=== PATIENT | female | born 1945 | race Caucasian/White ===

== ENCOUNTER 2017-01-18 04:46 | Emergency (ER) | payer MEDICARE, OTHER ==
[2017-01-18] MEDS ORDERED: LOSARTAN POTASS25 MG PO (07:54)
[2017-01-18] MEDS ORDERED: RESTASIS EYE DR30 EA EACH EYE (07:55)
[2017-01-18 13:02] VITALS: BMI 20.8
[2017-01-18] MEDS ORDERED: COZAAR25 MG PO (19:39)
[2017-01-18] MEDS ORDERED: OMEPRAZOLE40 MG PO (19:39)
== END 2017-01-18 06:55 | disposition other institution (70) ==
LOC: D.ER 04:46
DX: R55 Syncope and collapse (principal); R07.9 Chest pain, unspecified; I10 Essential (primary) hypertension; Z95.0 Presence of cardiac pacemaker

== ENCOUNTER 2017-01-18 04:46 | Inpatient (IN) | payer MEDICARE, OTHER ==
[2017-01-18 05:23] LABS: BASOPHILS 0.5 % (0-2); EOSINOPHILS 4.5 % (0-7); HEMATOCRIT 36.7 % (36.0-48.0); HEMOGLOBIN 12.3 g/dL (12-16); IMMATURE GRANULOCYTES 0.2 % (0-5); MCH 30.1 pg (26.0-34.0); MCHC 33.5 g/dL (31.0-37.0); MEAN PLATELET VOLUME 10.9 fL (7.4-10.4); MONOCYTES 6.9 % (2-11); NEUTROPHILS 55.9 % (40-80); PLATELET COUNT 208 10x3/uL (130-400); RBC 4.08 10x6/uL (4.00-5.40); RDW 12.9 % (11.5-14.5); WBC 6.2 10x3/uL (4.8-10.8)
[2017-01-18 05:39] LABS: ALBUMIN 3.1 g/dL (3.4-5.0); ALKALINE PHOSPHATASE 54 U/L (46-116); ALT (SGPT) 26 U/L (10-68); BILIRUBIN - TOTAL 0.25 mg/dL (0.2-1.3); CALC OSMOLALITY 289 mosm/kg (275-300); CALCIUM 9.1 mg/dL (8.5-10.1); CARBON DIOXIDE 29.9 mmol/L (21.0-32.0); CHLORIDE - SERUM 110 mmol/L (98-107); CREATININE - SERUM 0.9 mg/dL (0.6-1.3); GLUCOSE 80 mg/dL (74-106); POTASSIUM - SERUM 3.5 mmol/L (3.5-5.1); PROTEIN - SERUM 6.1 g/dL (6.4-8.2); SODIUM 144 mmol/L (136-145); UREA NITROGEN 25 mg/dL (7-18); eGFR NON AFRICAN AMERICAN 66 mL/min (90-120)
[2017-01-18 05:50] LABS: CHOL - HDL RATIO 2.1 ratio (2.3-4.1); CHOLESTEROL, TOTAL 167 mg/dL (0-200); CKMB 1.1 U/L (0.0-3.6); CREATINE KINASE 56 UL (21-215); HDL CHOLESTEROL 81 mg/dL (32-96); LDL CHOLESTEROL 76 mg/dL (0-100); LDL-HDL RATIO 0.9 ratio (1.5-3.5); MAGNESIUM - SERUM 1.9 mg/dL (1.8-2.4); TRIGLYCERIDE 54 mg/dL (30-200)
[2017-01-18 05:54] LABS: TROPONIN-I 0.017 ng/mL (0.000-0.060)
[2017-01-18 07:16] LABS: TROPONIN-I 0.031 ng/mL (0.000-0.060)
--- NOTE | 2017-01-18 07:45 | NUR ---
RECEIVED PT VIA W/C FROM ER TO ROOM 2118 IN STABLE CONDITION DENIES ANY DISCOMFORT OR NEEDS AT THIS TIME TELEMETRY APPLIED SR 62 NAD NOTED
[2017-01-18] MEDS ORDERED: LOSARTAN POTASS25 MG PO (07:54)
[2017-01-18] MEDS ORDERED: RESTASIS EYE DR30 EA EACH EYE (07:55)
[2017-01-18 12:00] VITALS: BP 131/53
[2017-01-18 13:02] VITALS: BP 142/62; BMI 20.8
[2017-01-18 13:20] LABS: CKMB 0.9 U/L (0.0-3.6); CREATINE KINASE 61 UL (21-215)
[2017-01-18 13:31] LABS: TROPONIN-I < 0.017 ng/mL (0.000-0.060)
[2017-01-18 16:00] VITALS: BP 145/58
[2017-01-18 18:53] LABS: CKMB 0.7 U/L (0.0-3.6); CREATINE KINASE 62 UL (21-215)
[2017-01-18 19:02] LABS: TROPONIN-I < 0.017 ng/mL (0.000-0.060)
--- NOTE | 2017-01-18 19:35 | NUR ---
ASESMENT COMPELTED. PT DENIED ANY DISCOMFORT. VSS. SR HR 74. IV TO L VANESSA MAHONEY. WILL CONTINUE TO MONITOR.
[2017-01-18 19:36] VITALS: BP 153/61
[2017-01-18] MEDS ORDERED: OMEPRAZOLE40 MG PO (19:39)
[2017-01-18] MEDS ORDERED: COZAAR25 MG PO (19:39)
--- NOTE | 2017-01-18 19:43 | NUR ---
IV DC'D WITH CATHETER INTACT. FAMILY AT BEDSIDE.
--- NOTE | 2017-01-18 20:05 | NUR ---
SUNIL HUNG'Fidelina TO POV VIA W/C.
--- NOTE | 2017-01-19 11:08 | CN ---
PATIENT NAME:DERICK YATES MEDICAL RECORD: [id number] : 49 LOCATION:D. D.2119 ADMIT DATE: 01/18/17 ACCOUNT: [id number] CONSULTING PHYSICIAN: LUCAS BIRMINGHAM MD REFERRING PHYSICIAN: CHRISTIANA DOUGLAS MD DATE OF CONSULTATION: 01/18/2017 HISTORY OF PRESENT ILLNESS: A 71-year-old female with history of neurocardiogenic syncope, has been doing extremely well up until yesterday had an episode actually this a.m. 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 We are asked to see her concerning her cardiovascular status. PAST MEDICAL HISTORY: 1. History of hypertension. 2. Neurocardiogenic syncope. MEDICATIONS: Losartan 25 b.i.d., Restasis eyedrops 1 drop each eye q.12. ALLERGIES: None known. SOCIAL HISTORY: She is a nonsmoker, nondrinker. She takes care all of her ADLs. Does have a set of exercise program. REVIEW OF SYSTEMS: The patient reports easy bruising but reports no swollen glands. The patient reports no fever, no night sweats, no significant weight gain, no significant weight loss. No significant exercise tolerance. The patient reports no dry eyes, no irritation, no vision change. Patient reports no difficulty hearing and no ear pain. Patient reports no frequent nose bleeds or nose and sinus problems. Patient reports on arm pain on exertion. No shortness of breath while lying down. No history of heart murmur. Patient reports no cough, no wheezing or coughing up blood. Patient reports no abdominal pain, no vomiting. Normal appetite. No diarrhea and not vomiting blood. No nausea and no constipation. Patient reports no incontinence. No difficulty urinating. No hematuria. No increased frequency. Patient reports no muscle aches. No weakness, no arthralgias, no back pain. No swelling of the extremities. Patient reports no abnormal mole, no jaundice, no rashes. Reports no loss of consciousness. No weakness and no numbness. No seizures, dizziness, or headaches. The patient reports no depression, no sleep disturbance, feeling safe in a relationship and no alcohol abuse. Patient reports on fatigue. Reports no runny nose or sinus pressure. No itching, no hives, and no frequent sneezing. PHYSICAL EXAMINATION: GENERAL: Pleasant female in no acute distress, appears younger than stated age. HEENT: Normocephalic, atraumatic. NECK: No JVD or bruit. HEART: Regular. LUNGS: Lung de souza, good air excursion. ABDOMEN: Soft, nontender. EXTREMITIES: Pulses 2+. There is no edema. NEUROLOGIC: Grossly intact. Pacemaker interrogated, no significant arrhythmias thresholds. Remained CONSULT REPORT [id number] DERICK YATES excellent doubt, significant structural heart disease as well. At this point in time, I have encouraged adequate hydration, decrease losartan down to 1 tablet once a day. She will be seen back. Thank you for the consultation. TRANSINT:[id number] Voice Confirmation ID: [id number] DOCUMENT ID: [id number] LUCAS BIRMINGHAM MD at 1108 CC: [id number] DICTATION DATE: 01/18/17 1017 EARLY HEAD START DIRECTOR: 01/18/17 1347 DIS IN 01/18/17 [id number] [place] [address]
--- NOTE | 2017-01-20 12:32 | EC ---
PATIENT:DERICK YATES DATE OF SERVICE: 01/18/17 SEX: F MEDICAL RECORD: [id number] DATE OF : 49 LOCATION:D.M2 D.211 AGE OF PATIENT: 71 ADMISSION DATE: 01/18/17 REFERRING PHYSICIAN: INTERPRETING PHYSICIAN: LUCAS BIRMINGHAM MD ECHOCARDIOGRAM REPORT ECHO CHARGES 4 ECHO COMPLETE CLINICAL DIAGNOSIS: SYNCOPE ECHOCARDIOGRAPHIC MEASUREMENTS (adult normal given) AC root (d.<3.7cm) 2.7 cm LV Septum d (<1.2 cm> 1.1 cm Valve Excursion 1.7 cm LV Septum (systole) 1.6 cm Left Atria (s.<4.0cm> 2.7 cm LVPW d(<1.2cm) 1.1 cm RV (d.<2.3cm) 2.7 cm LVPW (sytole) 1.6 cm LV diastole(<5.6CM) 5.0 cm MV E-F(>70mm/sec) cm LV systole 2.6 cm LVOT Diameter 1.7 cm MV exc.(>10mm) cm Est.ejection fraction (50-75%) % Pericardial Effusion N DOPPLER: LVIT cm/sec A 121 cm/sec E 133 cm/sec LA cm/sec RVSP 39.0 mmHg LVOT 148 cm/sec AOP1/2T m/s Asc. Ao 174 cm/sec RVOT 70.0 cm/sec RA cm/sec PA 91.0 cm/sec AV Gradient Peak 12.2 mmHg AV Mean 5.9 mmHg AV Area 2.0 cm MV Gradient Peak 7.8 mmHg MV Mean 2.7 mmHg MV Area cm COMMENTS: Signal Circuit Designer: Jd WOLFEOE Building Serviceman: 3 Dr. Alford TAPE# PACS DATE OF SERVICE: 01/18/2017 Adequate 2D echo, color flow and spectral Doppler, and M-mode. No LVH. LV internal dimension is normal. Wall motion is normal. EF is greater than 55%. Aortic valve is tricuspid. No stenosis by Doppler interrogation. The left atrium is normal. Mitral valve shows no prolapse. Trace MR. Right-side chamber is grossly normal. Trace TR. TRANSINT:[id number] Voice Confirmation ID: [id number] DOCUMENT ID: [id number] ECHOCARDIOGRAM REPORT [id number] DERICK YATES LUCAS BIRMINGHAM MD at 1232 CC: [id number] DICTATION DATE: 01/19/17 1115 CUSHION ASSEMBLER: 01/19/17 1219 DIS IN 01/18/17 [id number] [place] [address]
== END 2017-01-18 20:07 | disposition home or self-care (01) | DRG 312 ==
LOC: D.ER 04:46 → EDBD 04:46 → D.M2 06:55
PROVIDERS: Emergency Medicine; ADMIT Family Medicine
DX: R55 Syncope and collapse (principal); R07.9 Chest pain, unspecified; I10 Essential (primary) hypertension; Z95.0 Presence of cardiac pacemaker

== ENCOUNTER → 2017-02-13 08:33 | Outpatient (CLI) | payer MEDICARE, OTHER ==
[2017-01-18 13:02] VITALS: BMI 20.8
[~2017-02-13 08:33] MED LIST: COZAAR25 MG PO; LOSARTAN POTASS25 MG PO; OMEPRAZOLE40 MG PO; RESTASIS EYE DR30 EA EACH EYE
== END | disposition home or self-care (01) ==
LOC: D.OPS 08:33 → D.US 09:00 → D.OPS 09:00
DX: E04.1 Nontoxic single thyroid nodule (principal); Z01.812 Encounter for preprocedural laboratory examination

== ENCOUNTER 2017-06-16 10:44 | Outpatient (CLI) | payer MEDICARE, BC | END 2017-06-16 12:00 | LOC: D.OPS 10:44 | DX: K22.5 Diverticulum of esophagus, acquired (principal) ==

== ENCOUNTER 2017-08-03 09:55 | Inpatient (IN) | payer MEDICARE, BC ==
[2017-07-31 10:18] LABS: HEMATOCRIT 40.7 % (36.0-48.0); HEMOGLOBIN 13.7 g/dL (12-16); MCH 30.6 pg (26.0-34.0); MCHC 33.7 g/dL (31.0-37.0); MCV 90.8 fL (80.0-100.0); MEAN PLATELET VOLUME 10.7 fL (7.4-10.4); RBC 4.48 10x6/uL (4.00-5.40); RDW 12.8 % (11.5-14.5); WBC 6.1 10x3/uL (4.8-10.8)
[2017-08-03] VITALS (11 sets, daily range): BP systolic 148–182; BP diastolic 58–88; BMI 24.4
[~2017-08-03] VITALS: Ht 162.6 cm; Wt 64.4 kg
[2017-08-04 04:54] VITALS: BP 119/72
[2017-08-04 06:06] LABS: BASOPHILS 0.1 % (0-2); EOSINOPHILS 0 % (0-7); HEMATOCRIT 36.4 % (36.0-48.0); HEMOGLOBIN 12.1 g/dL (12-16); IMMATURE GRANULOCYTES 0.2 % (0-5); LYMPHOCYTES 12.2 % (15-50); MCHC 33.2 g/dL (31.0-37.0); MCV 90.3 fL (80.0-100.0); MEAN PLATELET VOLUME 10.9 fL (7.4-10.4); NEUTROPHILS 81.5 % (40-80); PLATELET COUNT 213 10x3/uL (130-400); RBC 4.03 10x6/uL (4.00-5.40); RDW 12.9 % (11.5-14.5); WBC 12.4 10x3/uL (4.8-10.8)
[2017-08-04 06:50] LABS: ALBUMIN 2.8 g/dL (3.4-5.0); ALKALINE PHOSPHATASE 71 U/L (46-116); ALT (SGPT) 543 U/L (10-68); BILIRUBIN - TOTAL 0.66 mg/dL (0.2-1.3); CALC OSMOLALITY 279 mosm/kg (275-300); CALCIUM 8.4 mg/dL (8.5-10.1); CARBON DIOXIDE 27.9 mmol/L (21.0-32.0); CHLORIDE - SERUM 103 mmol/L (98-107); CREATININE - SERUM 0.8 mg/dL (0.6-1.3); POTASSIUM - SERUM 4.1 mmol/L (3.5-5.1); PROTEIN - SERUM 5.8 g/dL (6.4-8.2); SODIUM 139 mmol/L (136-145); UREA NITROGEN 16 mg/dL (7-18); eGFR NON AFRICAN AMERICAN 75 mL/min (90-120)
[2017-08-04 06:51] LABS: GLUCOSE 125 mg/dL (74-106)
[2017-08-04 08:14] VITALS: BP 179/74
[2017-08-04] MEDS ORDERED: ZOFRAN ODT4 MG/UDTAB PO (08:52)
[2017-08-04] MEDS ORDERED: CYCLOBENZAPRINE10 MG PO (08:52)
[2017-08-04] MEDS ORDERED: MEPERIDINE HCL50 MG PO (08:53)
[2017-08-04 11:04] VITALS: Ht 162.6 cm; Wt 64.4 kg
== END 2017-08-04 11:00 | disposition home or self-care (01) | DRG 328 ==
LOC: D.OPS 09:55 → D.PAN 12:00 → D.MS 15:45 → D.OPS 15:46 → D.MS 15:46
PROVIDERS: Anesthesiology; Surgery
PROC: 0DV44ZZ Restriction of Esophagogastric Junction, Percutaneous Endoscopic Approach (ICD-10-PCS; principal; 2017-08-03 12:00)
PROC: 0BQT4ZZ Repair Diaphragm, Percutaneous Endoscopic Approach (ICD-10-PCS; 2017-08-03 12:00)
DX: K21.9 Gastro-esophageal reflux disease without esophagitis (principal); K44.9 Diaphragmatic hernia without obstruction or gangrene; K57.90 Diverticulosis of intestine, part unspecified, without perforation or abscess without bleeding